=== PATIENT | female | born 1965 | race Caucasian/White ===

== ENCOUNTER → 2017-07-11 | Outpatient (CLI) | payer OTHER ==
[~2017-07-11] MED LIST: BUPR-126 PO; DEXL30CA5 PO; DEXL60CA6 PO; DOCU-416 PO; HYDR-2966 PO; IOPAMIDOL 76% 150 ML INFUS BTL 150 ML ONE; LEVO50TA86 PO; LISI-351 PO; LISI-355 PO; LISI-362 PO; LOR5/325 PO; NS 0.9% 50 ML VIAL 100 ML ONE; OXYC-373 PO; RANI-324 PO
--- NOTE | 2017-07-11 11:48 | RADIOLOGY IMAGING REPORT ---
[place] [facility] [place] Ana Brady : 1965 MR: [id number] V: [id number] EXAM DATE: ORDERING PHYSICIAN: TAN MYERS TECHNOLOGIST: Location: Patient: Ana Brady : 1965 Visit/Account:[id number] Date of Sevice: 07/11/2017 ABDOMEN/PELVIS W/WO CONTRAST HISTORY: Lower abdominal pain. TECHNIQUE: CT abdomen and pelvis without and with intravenous contrast. One of the following dose optimization techniques was utilized in the performance of this exam: Autom ated exposure control; adjustment of the mA and/or kV according to the patient's size; or use of an i terative reconstruction technique. Specific details can be referenced in the facility's radiology C T exam operational policy. CONTRAST: 150 mL Isovue-370. COMPARISON: None. FINDINGS: Visualized lung bases: Negative. Hepatobiliary: Mild diffuse hepatic steatosis. Gallbladder surgically absent. Otherwise negative. Spleen: Negative. Adrenals: Negative. Pancreas: Negative. Kidneys/: Kidneys are normal in size and contour. There is no nephrolithiasis, renal mass, or hydr onephrosis. No ureteral calculus or visualized filling defect. No bladder calculus, mass, or wall thi ckening. Uterus and adnexa are unremarkable. GI: Mild diverticulosis within the proximal descending colon without evidence for diverticulitis. Ti ny hiatal hernia. Otherwise negative. Vessels/spaces/nodes: Negative. Bones/soft tissues: Mild degenerative changes within the sacroiliac joints. IMPRESSION: 1. No acute findings. No visualized urolithiasis or urothelial mass. 2. Incidental/chronic findings, as above. Report Dictated By: Kang Fletcher MD at 07/11/2017 11:35 AM Report E-Signed By: Kang Fletcher MD at 07/11/2017 11:43 AM WSN:[id number]
== END ==
LOC: CT 01:19
PROVIDERS: ATTEND Physician Assistant
DX: K76.0 Fatty (change of) liver, not elsewhere classified (principal); Z90.49 Acquired absence of other specified parts of digestive tract; K57.30 Diverticulosis of large intestine without perforation or abscess without bleeding; K44.9 Diaphragmatic hernia without obstruction or gangrene
CPT/HCPCS: 74178; J7050; Q9967

== ENCOUNTER → 2017-09-19 | Outpatient (CLI) | payer OTHER ==
[~2017-09-19] MED LIST changes: -IOPAMIDOL 76% 150 ML INFUS BTL 150 ML ONE; -NS 0.9% 50 ML VIAL 100 ML ONE
--- NOTE | 2017-09-20 10:25 | RADIOLOGY IMAGING REPORT ---
FACILITY: [facility] [place] PATIENT NAME: MIGNON NOGUERA : [id number] MR: [id number] V: [id number] EXAM DATE: [id number] ORDERING PHYSICIAN: TAN MYERS TECHNOLOGIST: Bernadine Ugalde PROCEDURE:BILATERAL DIGITAL SCREENING MAMMOGRAM WITH CAD ASSISTED INTERPRETATION & 3D TOMOSYNTHESIS COMPARISON:Prior mammograms 07/30/16, 07/12/15, 06/22/14, 06/16/13, 07/03/11, 06/22/11 INDICATIONS:screening FINDINGS: Small amount of fibroglandular tissue is seen throughout the breasts. The parenchymal pattern has remained stable allowing for difference in mammographic technique & patient positioning. There is no evidence of malignant appearing mass, malignant appearing calcifications or other secondary sign of malignancy in either breast. DIAGNOSTIC CATEGORY 1--NEGATIVE. RECOMMENDATIONS: ROUTINE MAMMOGRAM AND CLINICAL EVALUATION. IMPRESSION: BIRADS 1: Negative No significant abnormality is seen. Dictated by: Tori Santamaria M.D. on 09/19/2017 at 16:30 Transcribed by: RENETTA on 09/20/2017 at 8:02 Approved by: Tori Santamaria M.D. on 09/20/2017 at 10:23 [facility]
== END ==
LOC: MAMO 01:10
PROVIDERS: ATTEND Physician Assistant
DX: Z12.31 Encounter for screening mammogram for malignant neoplasm of breast (principal)
CPT/HCPCS: 77063; 77067

== ENCOUNTER 2017-11-08 14:28 | Emergency (ER) | payer OTHER ==
[~2017-11-08 14:28] MED LIST changes: -RANI-324 PO; +RANI-366 PO
--- NOTE | 2017-11-08 14:55 | ER Report ---
History and Physical Time Seen By MD: 14:50 HPI/ROS CHIEF COMPLAINT: CHEST PAIN HISTORY OF PRESENT ILLNESS: Pt here for evaluation of chest pain that has been going on for a month. pain comes and goes. Can last a few hours or minutes. Is sharp and achy at times. Will radiate to her back. Pain is in left upper part of her chest. Pt has pain with breathing. + sob intermittently. pt states she has had a cough since may but that is just getting better. no fevers. + nausea at times. Saw pcp, Dr. wagner on saturday for the cp. was told her ekg was stable. pt came to ed today because "i just dont feel right". Pt also states she has been having numbness to right lateral thigh. REVIEW OF SYSTEMS: Constitutional: No fever, no chills. Eyes: No discharge. ENT: No sore throat. Cardiovascular: + chest pain, no palpitations. Respiratory: + cough, + shortness of breath. Gastrointestinal: No abdominal pain, no vomiting. Genitourinary: No hematuria. Musculoskeletal: No back pain. Skin: No rashes. Neurological: No headache. Allergies: Coded Allergies: No Known Drug Allergies (Unverified , 04/23/16) Home Meds Reported Medications Lisinopril/Hydrochlorothiazide (LISINOPRIL-HCTZ 20-25 MG TAB) 1 Each Tablet, 1 EACH PO QDAY 05/09/16 Ranitidine Hcl (ZANTAC) 150 Mg Tablet, 150 MG PO HS, TAB 08/30/15 Discontinued Reported Medications Dexlansoprazole (DEXILANT) 60 Mg Cap., 60 MG PO QDAY 08/30/15 Discontinued Scripts Docusate Sodium (COLACE) 100 Mg Capsule, 1 CAP PO BID, #30 CAP 0 Refills TAKE WITH A FULL GLASS OF WATER Prov:RADHA TAPIA MD 05/10/16 Past Medical/Surgical History Pmhx; htn, gerd, pud Pshx: damion doyle Reviewed Nurses Notes: Yes Old Medical Records Reviewed: Yes Hx Smoking: No Smoking Status: Never Smoker Exposure to Second Hand Smoke?: Yes (15 YEARS AGO AT WORK) Hx Substance Use Disorder: No Hx Alcohol Use: No Constitutional Vital Sign - Last 24 Hours 11/08/17 11/08/17 11/08/17 11/08/17 14:32 14:33 14:43 14:45 Temp 98.7 Pulse 77 71 Resp 16 56 B/P (MAP) 159/67 159/67 (97) 157/79 (105) Pulse Ox 94 96 O2 Delivery Room Air 11/08/17 11/08/17 11/08/17 11/08/17 14:58 15:00 15:15 15:28 Pulse 81 68 Resp 13 13 B/P (MAP) 153/87 (109) 145/72 (96) Pulse Ox 100 99 11/08/17 11/08/17 15:30 15:43 Pulse 76 Resp 13 B/P (MAP) 131/75 (93) Pulse Ox 97 Physical Exam General Appearance: The patient is alert, has no immediate need for airway protection and no signs of toxicity. Eyes: Pupils equal and round no pallor or injection, EOMI ENT: no pharyngeal erythema or exudates, Mucous membranes are moist Respiratory: There are no retractions, lungs are clear to auscultation. Cardiovascular: Regular rate and rhythm. pulses are equal and symmetrical, + chest wall tenderness left upper with palpation Gastrointestinal: Abdomen is soft and non tender, no masses, bowel sounds normal, no guarding, no rigidity or rebound Neurological: Cranial nerves II-XII grossly intact, no sensory or motor loss Skin: Warm and dry, no rashes. Musculoskeletal: Neck is supple non tender, no vertebral tenderness Extremities are nontender, non swollen and have full range of motion. DIFFERENTIAL DIAGNOSIS: After history and physical exam differential diagnosis was considered for acs, gerd, costochondritis, pleurisy, pe Medical Decision Making Data Points Result Diagram: 11/08/17 1446 11/08/17 1446 Laboratory Hematology Test 11/08/17 14:46 Red Blood Count 5.02 M/uL (4.17-5.56) Mean Corpuscular Volume 87.3 fL (80.0-96.0) Mean Corpuscular Hemoglobin 30.5 pg (26.0-33.0) Mean Corpuscular Hemoglobin Concent 35.0 g/dL (32.0-36.0) Red Cell Distribution Width 14.1 % (11.5-14.5) Mean Platelet Volume 8.9 fL (7.2-11.1) Neutrophils (%) (Auto) 63.5 % (39.4-72.5) Lymphocytes (%) (Auto) 29.7 % (17.6-49.6) Monocytes (%) (Auto) 5.5 % (4.1-12.4) Eosinophils (%) (Auto) 0.4 % (0.4-6.7) Basophils (%) (Auto) 0.9 % (0.3-1.4) Nucleated RBC Relative Count (auto) 0.0 /100WBC Neutrophils # (Auto) 4.3 K/uL (2.0-7.4) Lymphocytes # (Auto) 2.0 K/uL (1.3-3.6) Monocytes # (Auto) 0.4 K/uL (0.3-1.0) Eosinophils # (Auto) 0.0 K/uL (0.0-0.5) Basophils # (Auto) 0.1 K/uL (0.0-0.1) Nucleated RBC Absolute Count (auto) 0.00 K/uL D-Dimer Quantitative (PE/DVT) 0.40 ug/ml (0-0.50) Sodium Level 140 mmol/L (137-145) Potassium Level 2.8 mmol/L (3.5-5.0) Chloride Level 96 mmol/L (98-107) Carbon Dioxide Level 29 mmol/L (22-31) Blood Urea Nitrogen 13 mg/dl (7-18) Creatinine 0.70 mg/dl (0.52-1.04) Glomerular Filtration Rate Calc > 60.0 Random Glucose 103 mg/dl (75-110) Calcium Level 10.1 mg/dl (8.4-10.2) Magnesium Level 2.0 mg/dl (1.7-2.2) Total Bilirubin 0.5 mg/dl (0.2-1.3) Aspartate Amino Transf (AST/SGOT) 44 U/L (0-35) Alanine Aminotransferase (ALT/SGPT) 61 U/L (0-56) Alkaline Phosphatase 83 U/L (0-126) Troponin I < 0.012 ng/ml Total Protein 8.3 gm/dl (6.3-8.2) Albumin 4.6 g/dl (3.5-5.0) Chemistry Test 11/08/17 14:46 White Blood Count 6.8 k/uL (4.5-11.0) Red Blood Count 5.02 M/uL (4.17-5.56) Hemoglobin 15.3 g/dL (12.0-16.0) Hematocrit 43.8 % (34.0-47.0) Mean Corpuscular Volume 87.3 fL (80.0-96.0) Mean Corpuscular Hemoglobin 30.5 pg (26.0-33.0) Mean Corpuscular Hemoglobin Concent 35.0 g/dL (32.0-36.0) Red Cell Distribution Width 14.1 % (11.5-14.5) Platelet Count 297 K/uL (150-450) Mean Platelet Volume 8.9 fL (7.2-11.1) Neutrophils (%) (Auto) 63.5 % (39.4-72.5) Lymphocytes (%) (Auto) 29.7 % (17.6-49.6) Monocytes (%) (Auto) 5.5 % (4.1-12.4) Eosinophils (%) (Auto) 0.4 % (0.4-6.7) Basophils (%) (Auto) 0.9 % (0.3-1.4) Nucleated RBC Relative Count (auto) 0.0 /100WBC Neutrophils # (Auto) 4.3 K/uL (2.0-7.4) Lymphocytes # (Auto) 2.0 K/uL (1.3-3.6) Monocytes # (Auto) 0.4 K/uL (0.3-1.0) Eosinophils # (Auto) 0.0 K/uL (0.0-0.5) Basophils # (Auto) 0.1 K/uL (0.0-0.1) Nucleated RBC Absolute Count (auto) 0.00 K/uL D-Dimer Quantitative (PE/DVT) 0.40 ug/ml (0-0.50) Glomerular Filtration Rate Calc > 60.0 Calcium Level 10.1 mg/dl (8.4-10.2) Magnesium Level 2.0 mg/dl (1.7-2.2) Total Bilirubin 0.5 mg/dl (0.2-1.3) Aspartate Amino Transf (AST/SGOT) 44 U/L (0-35) Alanine Aminotransferase (ALT/SGPT) 61 U/L (0-56) Alkaline Phosphatase 83 U/L (0-126) Troponin I < 0.012 ng/ml Total Protein 8.3 gm/dl (6.3-8.2) Albumin 4.6 g/dl (3.5-5.0) Coagulation Test 11/08/17 14:46 D-Dimer Quantitative (PE/DVT) 0.40 ug/ml EKG/Imaging EKG Interpretation similar to prior in Mar 22 2016 Nsr @ [address] wave changes and prolonged qt ED Course/Re-evaluation Clinical Indication for ER IV: IV Access ED Course check labs and ekg 11/08/2017 3:27:38 pm Pts potassium is low. will replace and also send off a magnesium level 11/08/2017 4:01:53 pm Magnesium level is stable. PTs pain is reproducible and with normal troponin with chest pain for a month unlikely mi. I did discuss with pt that she could have heart ds and should have a baseline stress test as outpt. provide her with [facility] name of cardiology visitning doctors. Decision to Disposition Date: November 08, 2017 Decision to Disposition Time: 16:03 Depart Departure Latest Vital Signs Vital Signs Date Time Temp Pulse Resp B/P (MAP) Pulse Ox O2 Delivery O2 Flow Rate FiO2 11/08/17 15:43 76 13 97 11/08/17 15:30 131/75 (93) 11/08/17 14:32 98.7 Room Air Impression: Primary Impression: Hypokalemia Additional Impression: Nonspecific chest pain Condition: Condition Unchanged Disposition: HOME OR SELF-CARE Referrals: RADHA WAGNER MD (PCP) 2 Days Patient Instructions: Chest Pain (GEN), Hypokalemia (GEN) Additional Instructions: Your blood work today did not show an acute heart attack. This does not mean you do not have heart disease. It is important that you follow up with cardiology for possible out patient stress test. Your family doctor can order your stress test or you can call [facility] at [phone] and make an appointment with one of the visiting customer relations specialist from [place] or [place]. They come to [place] at different times throughtout the month. Your chest xray was also normal. Your potassium was also low today. We replaced it. Follow up with your doctor. Problem Qualifiers JERMAN CASTLE DO November 08, 2017 14:55
[2017-11-08 15:08] LABS: PLATELET COUNT, AUTOMATED 297 K/uL (150-450)
--- NOTE | 2017-11-08 15:24 | EKG ---
FACILITY: [facility] - [place] PATIENT NAME: MIGNON NOGUERA : [id number] MR: [id number] V: [id number] EXAM DATE: ORDERING PHYSICIAN: ADRIEL GONZALEZ TECHNOLOGIST: Gerardo Lujan Reason : Blood Pressure : / mmHG Vent. Rate : 070 BPM Atrial Rate : 070 BPM P-R Int : 142 ms QRS Dur : 092 ms QT Int : 450 ms P-R-T Axes : 059 -09 002 degrees QTc Int : 486 ms Normal sinus rhythm Nonspecific T wave abnormality Prolonged QT Abnormal ECG Confirmed by CASSY CORREA ([id number]) on 11/09/2017 6:38:55 AM Referred By: Confirmed By:CASSY CORREA
[2017-11-08] MEDS ORDERED: POTASSIUM CHL PWDR 20 MEQ PKT PO ONE (15:25)
[2017-11-08 15:30] VITALS: BP 131/75
--- NOTE | 2017-11-08 15:30 | RADIOLOGY IMAGING REPORT ---
FACILITY: [facility] PATIENT NAME: Ana Brady : 1965 MR: [id number] V: [id number] EXAM DATE: ORDERING PHYSICIAN: JERMAN CASTLE TECHNOLOGIST: [place] [facility] [place] Brady : 1965 Visit/Account:[id number] Date of Sevice: 11/08/2017 Exam type: CHEST PA AND LAT History: CHEST PAIN/ SOB Comparison: March 23, 2016 Findings: The lungs are free of acute effusions infiltrates or edema. Cardiac silhouette is normal in size. T here is no evidence of a pneumothorax or pneumomediastinum.. IMPRESSION: 1. No acute cardiopulmonary process is seen Report Dictated By: Tori Santamaria MD at 11/08/2017 3:24 PM Report E-Signed By: Tori Santamaria MD at 11/08/2017 3:26 PM WSN:[id number]
[2017-11-08] MEDS ORDERED: KETOROLAC 15 MG/ML VIAL IVP ONE (15:35)
== END 2017-11-08 16:20 | disposition home or self-care (01) ==
LOC: ER 14:30
DX: E87.6 Hypokalemia (principal); R07.9 Chest pain, unspecified; R94.31 Abnormal electrocardiogram [ECG] [EKG]
CPT/HCPCS: 71046; 83735; 84484; 85025; 85379; 93005; 96374; 99284; J1885; 82040; 82247; 82310; 82374; 82435; 82565; 82947; 84075; 84132; 84155; 84295; 84450; 84460; 84520

== ENCOUNTER → 2018-05-23 | Outpatient (CLI) | payer OTHER | LOC: LAB 15:47 | PROVIDERS: ATTEND Physician Assistant | DX: R10.30 Lower abdominal pain, unspecified (principal) | CPT/HCPCS: 82274; 87338 ==

== ENCOUNTER → 2018-07-22 | Outpatient (REF) | payer OTHER ==
[2018-07-22 12:36] LABS: PLATELET COUNT, AUTOMATED 284 K/uL (150-450)
== END ==
LOC: ZZSTITCHES 12:23
PROVIDERS: ATTEND Physician Assistant
DX: R07.89 Other chest pain (principal)
CPT/HCPCS: 82040; 82247; 82310; 82374; 82435; 82565; 82947; 84075; 84132; 84155; 84295; 84443; 84450; 84460; 84484; 84520; 85025; 85379

== ENCOUNTER → 2018-07-29 | Outpatient (REF) | payer OTHER | LOC: ZZSENDIN 11:04 | PROVIDERS: ATTEND Physician Assistant | DX: N39.0 Urinary tract infection, site not specified (principal) | CPT/HCPCS: 81001 ==

== ENCOUNTER → 2018-11-04 | Outpatient (CLI) | payer OTHER ==
--- NOTE | 2018-11-04 15:25 | RADIOLOGY IMAGING REPORT ---
FACILITY: [facility] PATIENT NAME: MIGNON NOGUERA : [id number] MR: [id number] V: [id number] EXAM DATE: ORDERING PHYSICIAN: RADHA WAGNER TECHNOLOGIST: Bernadine Ugalde PROCEDURE:BILATERAL DIGITAL SCREENING MAMMOGRAM WITH CAD ASSISTED INTERPRETATION & 3D TOMOSYNTHESIS COMPARISON:Prior mammograms 09/19/17, 07/30/16, 07/12/15, 06/22/14, 06/16/13. INDICATIONS:screening FINDINGS: The breasts are almost entirely fatty. The parenchymal pattern has remained stable allowing for difference in mammographic technique & patient positioning. DIAGNOSTIC CATEGORY 1--NEGATIVE. RECOMMENDATIONS: ROUTINE MAMMOGRAM AND CLINICAL EVALUATION. IMPRESSION: BIRADS 1: Negative. No significant abnormality is seen. Dictated by: Tori Santamaria M.D. on 11/04/2018 at 14:27 Transcribed by: RENETTA on 11/04/2018 at 14:47 Approved by: Tori Santamaria M.D. on 11/04/2018 at 15:24 [facility]
== END ==
LOC: MAMO 01:24
PROVIDERS: ATTEND Family Medicine
DX: Z12.31 Encounter for screening mammogram for malignant neoplasm of breast (principal)
CPT/HCPCS: 77063; 77067